=== PATIENT | male | born 1960 | race Caucasian/White ===

== ENCOUNTER 2019-11-09 01:14 | Emergency (ER) | payer OTHER ==
--- NOTE | 2019-11-09 01:27 | ED Physician Documentation ---
PD HPI ABD PAIN - Stated complaint Stated Complaint: STOMACH PX, VOMITING - History obtained from History obtained from: Patient - History of Present Illness Timing - onset: How many hours ago (4) Timing - duration: Hours (4) Timing - details: Abrupt onset, Still present (He had abrupt onset about 15 or 20 minutes after eating a taco salad of significant upper abdominal pain which persisted steadily and became much worse in the past hour. Associated with nausea and vomiting that did not improve the pain. Had felt okay earlier in the day.) Quality: Aching, Sharp, Pain Location: RUQ, Epigastric Radiation: Chest, Upper back Improved by: No: Vomiting Worsened by: Eating, Palpation. No: Moving, Breathing Associated symptoms: Nausea, Vomiting (several times, then dry heaving). No: Fever, Hematemesis, Diarrhea, Constipation, Dizzy, Near syncope / syncope Similar symptoms before: Has not had sx before Recently seen: Not recently seen Review of Systems Constitutional: denies: Fever, Chills, Myalgias Nose: denies: Rhinorrhea / runny nose, Congestion Throat: denies: Sore throat Cardiac: denies: Palpitations, Pedal edema, Calf pain Respiratory: denies: Cough GI: reports: Abdominal Pain, Abdominal Swelling (feels bloated), Nausea, Vomiting. denies: Constipation, Diarrhea, Hematemesis : denies: Dysuria Neurologic: denies: Generalized weakness, Focal weakness, Near syncope, Altered mental status, Headache PD PAST MEDICAL HISTORY - Past Medical History Cardiovascular: None Respiratory: None Neuro: None Endocrine/Autoimmune: None GI: Other (eosiniphilic esophagitis, takes PPI daily for it.) - Present Medications Home Medications: Ambulatory Orders Medication Instructions Recorded Confirmed Ondansetron Odt [Zofran] 4 mg TL Q6H PRN #10 tablet 11/09/19 Oxycodone HCl/Acetaminophen 1 each PO Q6H PRN #10 tablet 11/09/19 [Percocet 5-325 mg Tablet] - Allergies Allergies/Adverse Reactions: Allergies Allergy/AdvReac Type Severity Reaction Status Date / Time No Known Drug Allergies Allergy Verified 11/09/19 01:47 PD ED PE NORMAL - Vitals Vital signs reviewed: Yes - General General: Alert and oriented X 3, Well developed/nourished, Other (appears in considerable pain. ) - HEENT HEENT: Moist mucous membranes - Neck Neck: Supple, no meningeal sign, No adenopathy - Cardiac Cardiac: RRR, No murmur - Respiratory Respiratory: Clear bilaterally - Abdomen Abdomen: Soft, No organomegaly, Other (very tender with guarding in epigastric and RUQ area. Mild percussion tenderness, no rebound. Lower abd not tender. ) - Male Male : Deferred - Rectal Rectal: Deferred - Back Back: No CVA TTP - Derm Derm: Normal color, Warm and dry - Extremities Extremities: No tenderness to palpate, Normal ROM s pain, No calf tenderness / cord - Neuro Neuro: Alert and oriented X 3, No motor deficit, Normal speech Results - Vitals Vitals: Vital Signs - 24 hr 11/09/19 11/09/19 11/09/19 01:25 02:13 03:00 Temperature 35.7 C L Heart Rate 67 53 L 55 L Respiratory 36 H 14 14 Rate Blood Pressure 190/96 H 177/106 H 146/83 H O2 Saturation 100 99 96 11/09/19 03:30 Temperature Heart Rate 62 Respiratory 16 Rate Blood Pressure 156/89 H O2 Saturation 97 Oxygen O2 Source Room air - Labs Labs: Laboratory Tests 11/09/19 11/09/19 11/09/19 01:30 01:30 01:40 WBC 8.6 RBC 5.80 Hgb 17.2 Hct 50.5 MCV 87.1 MCH 29.7 MCHC 34.1 RDW 12.5 Plt Count 305 MPV 8.8 Neut # (Auto) 4.8 Lymph # (Auto) 2.6 [place] # (Auto) 0.8 Eos # (Auto) 0.3 Baso # (Auto) 0.1 Absolute Nucleated RBC 0.00 Nucleated RBC % 0.0 Sodium 142 Potassium 3.4 L Chloride 105 Carbon Dioxide 26 Anion Gap 11.0 BUN 19 Creatinine 1.2 Estimated GFR (MDRD) 62 L Glucose 150 H Calcium 10.3 Total Bilirubin 0.7 AST 19 ALT 26 Alkaline Phosphatase 105 Total Protein 7.8 Albumin 4.5 Globulin 3.3 Albumin/Globulin Ratio 1.4 Lipase 40 Urine Color YELLOW Urine Clarity CLEAR Urine pH 6.5 Ur Specific [place] 1.025 Urine Protein NEGATIVE Urine Glucose (UA) NEGATIVE Urine Ketones NEGATIVE Urine Occult Blood NEGATIVE Urine Nitrite NEGATIVE Urine Bilirubin NEGATIVE Urine Urobilinogen 1 (NORMAL) Ur Leukocyte Esterase NEGATIVE Ur Microscopic Review NOT INDICATED Urine Culture Comments NOT INDICATED - Rads (name of study) abd/pelvic CT Radiology: Prelim report reviewed (Aorta is normal without dissection. There is some pericholecystic fluid around the gallbladder and between it and the liver. No wall thickening or obvious stones. No other acute abnormality.), See rad report PD MEDICAL DECISION MAKING - ED course Complexity details: reviewed results (Labs are good and the CT scan shows just s ome pericholecystic fluid without wall thickening or obvious stones. Presume some sludging or small stone with biliary colic. Labs are normal so no signs of ductal obstruction.), re-evaluated patient (The patient is improved stepwise with doses of medication. He is more comfortable at the time of discharge and repeat abdominal exam is mildly tender without any guarding in the epigastric area), considered differential (Consider gallbladder spasm versus biliary duct blockage versus perforated ulcer or bowel obstruction given the abruptness of the pain and severity.), d/w patient Departure - Departure Disposition: 01 Home, Self Care Clinical Impression: Upper abdominal pain, Biliary colic Condition: Stable Record reviewed to determine appropriate education?: Yes Instructions: ED Abdominal Pain Gallstone Poss Follow-Up: LUIS ALFREDO LAGUERRE MD [Physician No Access] - Brandy Hearn MD [Provider Admit Priv/Credential] - Prescriptions: Oxycodone HCl/Acetaminophen [Percocet 5-325 mg Tablet] 1 each PO Q6H PRN #10 tablet PRN Reason: pain Ondansetron Odt [Zofran] 4 mg TL Q6H PRN #10 tablet PRN Reason: Nausea / Vomiting Comments: Mainly clear liquids and bland food for a day or two, and particularly avoid fatty foods. Resume more regular diet if your stomach is doing well at that point though avoid particularly fatty foods. Your CT scan shows some inflammation/fluid around the gallbladder suggesting gallbladder spasm and irritation as a cause of your pain. No other obvious causes are seen on your blood tests or CT scan. There were not obvious gallstones seen on the scan so you may have had some sludging or a very small stone block the gallbladder outlet, inducing the colic episode you had. This should taper down through the rest of the day today and be improved within 1 to 2 days. You will then need to see if you get further episodes in the future. Follow-up with your primary care or general surgery if you have mild recurrent episodes after meals. Use nausea and pain medicine if needed. Return to the ER if significant episode again or if you are not all the way improved over the next couple of days.
[2019-11-09] MEDS ORDERED: SODIUM CHLORIDE 0.9% 1,000 ML IV STA (01:53)
[2019-11-09] MEDS ORDERED: ONDANSETRON 4 MG/2 ML VIAL IVP STA ×2 (01:53→03:47)
[2019-11-09] MEDS ORDERED: HYDROmorphone 1 MG/ML CARPUJECT IVP STA ×2 (01:53→02:50)
[2019-11-09] MEDS ORDERED: FAMOTIDINE 20 MG/2 ML SYRINGE IVP STA (01:54)
[2019-11-09 01:58] LABS: BASOPHILS # (AUTO) 0.1 10^3/uL (0.0-0.1); BASOPHILS % (AUTO) 0.6 %; EOSINOPHILS # (AUTO) 0.3 10^3/uL (0.0-0.7); EOSINOPHILS % (AUTO) 3.2 %; HGB - HEMOGLOBIN 17.2 g/dL (14.0-18.0); LYMPHOCYTES # (AUTO) 2.6 10^3/uL (1.5-3.5); LYMPHOCYTES % (AUTO) 30.4 %; MEAN CORPUSCULAR HEMOGLOBIN 29.7 pg (27.0-31.0); MEAN CORPUSCULAR HGB CONC 34.1 g/dL (32.0-36.0); MEAN CORPUSCULAR VOLUME 87.1 fL (80.0-94.0); MEAN PLATELET VOLUME 8.8 fL (7.4-11.4); MONOCYTES # (AUTO) 0.8 10^3/uL (0.0-1.0); MONOCYTES % (AUTO) 8.8 %; NEUTROPHILS # (AUTO) 4.8 10^3/uL (1.5-6.6); NEUTROPHILS % (AUTO) 56.1 %; PLT - PLATELET COUNT 305 10^3/uL (130-450); RED CELL DISTRIBUTION WIDTH 12.5 % (12.0-15.0); WHITE BLOOD COUNT 8.6 x10^3/uL (4.8-10.8)
[2019-11-09 01:59] LABS: BILIRUBIN,URINE NEGATIVE (NEGATIVE); GLUCOSE, URINE (UA) NEGATIVE (NEGATIVE); KETONES,URINE (UA) NEGATIVE (NEGATIVE); LEUKOCYTE ESTERASE, URINE NEGATIVE (NEGATIVE); NITRITE,URINE NEGATIVE (NEGATIVE); OCCULT BLOOD,URINE NEGATIVE (NEGATIVE); PH,URINE 6.5 PH (5.0-7.5); PROTEIN,URINE NEGATIVE (NEGATIVE); UROBILINOGEN,URINE 1 (NORMAL) E.U./dL (NORMAL)
[2019-11-09 02:00] LABS: CLARITY,URINE CLEAR (CLEAR)
[2019-11-09 02:08] LABS: ALBUMIN 4.5 g/dL (3.2-5.5); ALBUMIN/GLOBULIN RATIO 1.4 (1.0-2.2); BILIRUBIN,TOTAL 0.7 mg/dL (0.2-1.0); CALCIUM 10.3 mg/dL (8.5-10.3); CREATININE 1.2 mg/dL (0.6-1.2); TOTAL PROTEIN 7.8 g/dL (6.7-8.2)
[2019-11-09] MEDS ORDERED: IOVERSOL 320 100 ML VIAL IVP ONE ×2 (02:13→02:47)
[2019-11-09] MEDS ORDERED: KETOROLAC 15 MG/ML VIAL IVP STA (02:50)
[2019-11-09 03:47] VITALS: BP 156/89
[2019-11-09] MEDS ORDERED: ONDANSETRON ODT 4 MG Prepack 2 TL PRN (03:50)
[2019-11-09] MEDS ORDERED: oxyCODONE/ACET 5/325 Prepack 4 PO STA (03:50)
--- NOTE | 2019-11-09 09:16 | CT Report ---
PROCEDURE: Abdomen/Pelvis W INDICATIONS: Abdominal pain, acute, nonlocalized CONTRAST: IV CONTRAST: Optiray 320 ml: 100 PO CONTRAST: *NO PO CONTRAST TECHNIQUE: After the administration of nonionic contrast, 5 mm thick sections acquired from the diaphragms to th e symphysis. 5 mm thick coronal and sagittal reformats were acquired. For radiation dose reduction, the following was used: automated exposure control, adjustment of mA and/or kV according to patient size. COMPARISON: None. FINDINGS: Image quality: Excellent. ABDOMEN: Lung bases: Lung bases are clear. Heart size is normal. Solid organs: Liver and spleen are normal in size and enhancement. Gallbladder contains no calcifie d stones. No gallbladder wall thickening is present. Biliary system is non dilated. Pancreas enhanc es normally. No adrenal nodules. Kidneys demonstrate normal size and enhancement, without hydroneph rosis. Peritoneum and bowel: Bowel loops demonstrate normal wall thickness and caliber. No free fluid or a ir. Nodes and vessels: No retroperitoneal or mesenteric adenopathy by size criteria. Aorta and inferior vena cava are normal in size. Miscellaneous: No ventral hernias. PELVIS: Genitourinary: Bladder wall thickness is normal. Relatively large hydrocele noted involving the sma ll portion of the scrotum included on this study. Miscellaneous: No inguinal hernias or adenopathy. Note is made of a small calculus at the rectus ab ove the anterior border of the bladder. No inflammation or mass associated. No abnormal focal fluid c ollection in this area. Bones: No suspicious bony lesions. No vertebral body compression fractures. IMPRESSION: A definite source of generalized abdominal pain with nausea and vomiting is not found. N o calcified gallstones within the gallbladder lumen. Please note that some gallstones are cholesterol rich to the degree that they cannot be visualized accurately by CT scanning. Ultrasound scanning, ho wever, allows clear visualization of such structures. No sign of urinary tract inflammation or calculus. Incidental note is made of a small 3 mm calcificat ion within the urachus above the anterior border of the bladder, without associated fluid collection or inflammation, or mass. Presumably chronic relatively large hydrocele at a portion of the upper scrotum included on the field -of-view of this study. Please correlate clinically for chronicity. Reviewed by: Rodrigue Yanez MD on 11/09/2019 9:14 AM PDT Approved by: Rodrigue Yanez MD on 11/09/2019 9:14 AM PDT Station ID: [id number]
== END 2019-11-09 04:17 | disposition home or self-care (01) ==
LOC: ED 01:14
DX: K80.50 Calculus of bile duct without cholangitis or cholecystitis without obstruction (principal); R10.11 Right upper quadrant pain; R11.2 Nausea with vomiting, unspecified; R07.9 Chest pain, unspecified
CPT/HCPCS: 36415; 74177; 80053; 81003; 83690; 85025; 93005; 96361; 96374; 96375; 96376; 99284; 99285; J1170; Q9967; 81001; 87086

== ENCOUNTER 2019-11-10 07:24 | Observation (INO) | payer OTHER ==
[2019-11-10] MEDS ORDERED: SODIUM CHLORIDE 0.9% 1,000 ML IV STA (07:38)
[2019-11-10] MEDS ORDERED: ONDANSETRON 4 MG/2 ML VIAL IVP STA (07:38)
[2019-11-10] MEDS ORDERED: HYDROmorphone 1 MG/ML CARPUJECT IVP STA ×2 (07:38→09:51)
--- NOTE | 2019-11-10 07:42 | ED Physician Documentation ---
PD HPI ABD PAIN - Stated complaint Stated Complaint: ABD PX, DIFFICULTY BREATHING - History obtained from History obtained from: Patient - Additional information Additional information: 59-year-old gentleman was seen early yesterday morning epigastric and right upper quadrant pain. Had normal labs, CT with pericholecystic fluid. I guess he felt better on IV pain medication but pain has been intolerable at home with Advil and oxycodone. Also developed "a fever" yesterday but it was only 99 point something. Last bowel movement was about 40 hours ago. No history of abdominal surgeries. Review of Systems Ten Systems: 10 systems reviewed and negative Constitutional: reports: Fever Respiratory: denies: Dyspnea ("but hurts to breathe") GI: reports: Abdominal Pain, Nausea. denies: Vomiting PD PAST MEDICAL HISTORY - Past Medical History Cardiovascular: None Respiratory: None Neuro: None Endocrine/Autoimmune: None GI: Other (eosiniphilic esophagitis, takes PPI daily for it.) - Present Medications Home Medications: Ambulatory Orders Medication Instructions Recorded Confirmed Ondansetron Odt [Zofran] 4 mg TL Q6H PRN #10 tablet 11/09/19 Oxycodone HCl/Acetaminophen 1 each PO Q6H PRN #10 tablet 11/09/19 [Percocet 5-325 mg Tablet] - Allergies Allergies/Adverse Reactions: Allergies Allergy/AdvReac Type Severity Reaction Status Date / Time No Known Drug Allergies Allergy Verified 11/09/19 01:47 - Family History Family history: reports: Non contributory PD ED PE NORMAL - Vitals Vital signs reviewed: Yes - General General: Alert and oriented X 3, Other (appears uncomfortable) - HEENT HEENT: PERRL, EOMI - Neck Neck: Supple, no meningeal sign, No bony TTP - Cardiac Cardiac: RRR, No murmur - Respiratory Respiratory: No respiratory distress, Clear bilaterally - Abdomen Abdomen: Other (Quite TTP RUQ with + murphys) - Back Back: No CVA TTP, No spinal TTP - Derm Derm: Normal color, Warm and dry - Extremities Extremities: No edema, No calf tenderness / cord - Neuro Neuro: Alert and oriented X 3, Normal speech Results - Vitals Vitals: Vital Signs - 24 hr 11/10/19 11/10/19 11/10/19 07:41 07:58 09:45 Temperature 37 C 37 C Heart Rate 85 85 73 Respiratory 18 18 Rate Blood Pressure 181/98 H 181/98 H 183/103 H O2 Saturation 98 98 94 Oxygen O2 Source Room air - Labs Labs: Laboratory Tests 11/10/19 11/10/19 07:45 07:45 WBC 16.0 H RBC 5.58 Hgb 16.4 Hct 49.8 MCV 89.2 MCH 29.4 MCHC 32.9 RDW 12.8 Plt Count 238 MPV 8.5 Neut # (Auto) 13.4 H Lymph # (Auto) 1.1 L [place] # (Auto) 1.4 H Eos # (Auto) 0.0 Baso # (Auto) 0.1 Absolute Nucleated RBC 0.00 Nucleated RBC % 0.0 Sodium 136 Potassium 3.4 L Chloride 100 L Carbon Dioxide 28 Anion Gap 8.0 BUN 13 Creatinine 1.1 Estimated GFR (MDRD) 68 L Glucose 146 H Calcium 9.0 Total Bilirubin 1.7 H AST 17 ALT 23 Alkaline Phosphatase 93 Total Protein 7.6 Albumin 4.2 Globulin 3.4 Albumin/Globulin Ratio 1.2 Lipase 24 PD MEDICAL DECISION MAKING - ED course ED course: 59-year-old gentleman with history and physical consistent with brewing cholecystitis. I discussed the case multiple times with the on-call surgeon, Dr. Whiteside. The diagnostics are not completely convincing, ultrasound showing some polyps but no overt signs of cholecystitis. Since yesterday though he has developed a leukocytosis and an elevated bilirubin. Dr. Whiteside plans to place him in observation for pain control and discuss options. Departure - Departure Disposition: ED Place in Observation Clinical Impression: Acute abdomen Condition: Stable Discharge Date/Time: 11/10/19 11:05
[2019-11-10 08:01] LABS: BASOPHILS # (AUTO) 0.1 10^3/uL (0.0-0.1); BASOPHILS % (AUTO) 0.3 %; EOSINOPHILS % (AUTO) 0.1 %; HGB - HEMOGLOBIN 16.4 g/dL (14.0-18.0); LYMPHOCYTES # (AUTO) 1.1 10^3/uL (1.5-3.5); LYMPHOCYTES % (AUTO) 6.6 %; MEAN CORPUSCULAR HEMOGLOBIN 29.4 pg (27.0-31.0); MEAN CORPUSCULAR HGB CONC 32.9 g/dL (32.0-36.0); MEAN CORPUSCULAR VOLUME 89.2 fL (80.0-94.0); MEAN PLATELET VOLUME 8.5 fL (7.4-11.4); MONOCYTES # (AUTO) 1.4 10^3/uL (0.0-1.0); MONOCYTES % (AUTO) 8.4 %; NEUTROPHILS # (AUTO) 13.4 10^3/uL (1.5-6.6); NEUTROPHILS % (AUTO) 83.7 %; PLT - PLATELET COUNT 238 10^3/uL (130-450); RED BLOOD COUNT 5.58 10^6/uL (4.70-6.10); RED CELL DISTRIBUTION WIDTH 12.8 % (12.0-15.0)
[2019-11-10 08:20] LABS: ALBUMIN 4.2 g/dL (3.2-5.5); ALBUMIN/GLOBULIN RATIO 1.2 (1.0-2.2); BILIRUBIN,TOTAL 1.7 mg/dL (0.2-1.0); CREATININE 1.1 mg/dL (0.6-1.2); TOTAL PROTEIN 7.6 g/dL (6.7-8.2)
--- NOTE | 2019-11-10 09:42 | Ultrasound Report ---
PROCEDURE: Abdomen Limited INDICATIONS: RUQ pain TECHNIQUE: Real-time scanning was performed of the abdominal and retroperitoneal organs, with image documentatio n. COMPARISON: CT abdomen/pelvis dated 11/09/2019. FINDINGS: Liver: Liver is normal in size with mildly coarsened echotexture. Gallbladder: There is a small amount of layering sludge in the gallbladder without gallbladder wall t hickening or pericholecystic fluid. Subcentimeter nodules measuring up to 9 mm anteriorly and 6 mm po steriorly may represent adherent sludge or small polyps. Biliary ducts: Intrahepatic bile ducts are non-dilated. Extrahepatic bile duct caliber measures 4 m m. Normal is 6-7 mm or less in diameter, or 10 mm or less post-cholecystectomy. Pancreas: The pancreas is not well-visualized due to overlying bowel gas. Kidneys: The right kidney is normal in size measuring up to 12.8 cm. A 1.2 cm cyst is seen in the in terpolar region of the right kidney. No hydronephrosis or nephrolithiasis. No solid masses. IVC: Intrahepatic inferior vena cava is patent. Miscellaneous: No free right upper quadrant fluid. IMPRESSION: 1. Gallbladder sludge without signs of acute cholecystitis. 2. Filling defects in the gallbladder measuring 9 mm and 6 mm respectively may represent small polyp s or adherent sludge. Recommend follow-up ultrasound in one year to demonstrate stability. Reviewed by: Edouard Leon MD on 11/10/2019 9:40 AM PDT Approved by: Edouard Leon MD on 11/10/2019 9:40 AM PDT Station ID: [id number]
[2019-11-10] MEDS ORDERED: ONDANSETRON ODT 4 MG TABLET TL PRN ×2 (10:15→17:41)
[2019-11-10] MEDS ORDERED: ONDANSETRON 4 MG/2 ML VIAL IVP PRN ×3 (10:15→17:41)
[2019-11-10] MEDS ORDERED: SODIUM CHLORIDE FLUSH 0.9% 10 ML SYRINGE IVP PRN ×2 (10:15→17:41)
[2019-11-10] MEDS: LACTATED RINGERS 1,000 ML IV SCH ×2 (11:33→20:59)
[2019-11-10] MEDS: HYDROmorphone 0.5 MG/0.5 ML SYRINGE IVP PRN ×4 (11:49→20:58)
--- NOTE | 2019-11-10 12:51 | PHARMACY PROGRESS NOTE ---
- Best Possible Medication History Admit Date and Time: 11/10/19 1203 Processed by: Pharmacy Medication History completed: Yes Patient Interview: Completed Secondary Source(s): Pharmacy records, Insurance records (PATIENT INTERVIEWED BY DRILLING AND PRODUCTION SUPERINTENDENT. PATIENT AND SPOUSE ABLE TO CONFIRM HOME MEDICATIONS ) As the person ultimately responsible for medication therapy, providers are able to order a medication from an existing home medication list in [facility] via the "Reconcile Routine" prior to Confirmation of that medication by customer support specialist. Such practice is discouraged except when the physician, in their clinical judgment, deems that a medical need exists for a medication without regard to previous use.
[2019-11-10] MEDS: AMPICILLIN/SULBACTAM 3 GM in SODIUM CHLORIDE 0.9% MINIBAG 100 ML IV SCH ×2 (13:02→19:00)
--- NOTE | 2019-11-10 13:12 | ANESTHESIA ---
Pre-Anesthesia VS, & Labs - Diagnosis Cholecystitis - Procedure laparoscopic cholecystectomy Vital Signs: Temp Pulse Resp BP Pulse Ox 37.7 C H 87 16 175/85 H 98 11/10/19 11:18 11/10/19 11:18 11/10/19 11:18 11/10/19 11:18 11/10/19 11:18 Height 5 ft 9 in Weight (kg) 103 kg Body Mass Index 33.5 - NPO >8 hours - Lab Results Current Lab Results: Laboratory Tests 11/10/19 07:45: Sodium 136, Potassium 3.4 L, Chloride 100 L, Carbon Dioxide 28, Anion Gap 8.0, BUN 13, Creatinine 1.1, Estimated GFR (MDRD) 68 L, Glucose 146 H, Calcium 9.0, Total Bilirubin 1.7 H, AST 17, ALT 23, Alkaline Phosphatase 93, Total Protein 7.6, Albumin 4.2, Globulin 3.4, Albumin/Globulin Ratio 1.2, Lipase 24 11/10/19 07:45: WBC 16.0 H, RBC 5.58, Hgb 16.4, Hct 49.8, MCV 89.2, MCH 29.4, MCHC 32.9, RDW 12.8, Plt Count 238, MPV 8.5, Neut # (Auto) 13.4 H, Lymph # (Auto) 1.1 L, [place] # (Auto) 1.4 H, Eos # (Auto) 0.0, Baso # (Auto) 0.1, Absolute Nucleated RBC 0.00, Nucleated RBC % 0.0 Lab results reviewed: Yes Fish Bones: 11/10/19 07:45 11/10/19 07:45 Home Medications and Allergies Home Medications: Ambulatory Orders Multivitamin [Multivitamins] 1 cap PO DAILY 11/10/19 Omeprazole 20 mg PO DAILY 11/10/19 Triamcinolone Acetonide [Nasacort] 1 spray KATHLEEN DAILY PRN 11/10/19 Active Medications Acetaminophen (Tylenol) 650 mg PO Q4HR PRN PRN Reason: Pain 1 to 4 Famotidine (Pepcid) 20 mg PO BID JORDAN Hydromorphone HCl (Dilaudid Inj Syringe) 0.5 mg IVP Q2H PRN PRN Reason: Pain 8 to 10 Last Admin: 11/10/19 11:49 Dose: 0.5 mg Documented by: Lactated Ringer's (Lr) 1,000 mls @ 125 mls/hr IV .Q8H [facility] Last Admin: 11/10/19 11:33 Dose: 125 mls/hr Documented by: Ampicillin Sodium/Sulbactam (Sodium 3 gm/ Sodium Chloride) 100 mls @ 200 mls/hr IV Q6HR [facility] Last Admin: 11/10/19 13:02 Dose: 200 mls/hr Documented by: Ondansetron HCl (Zofran Odt) 4 mg TL Q6HR PRN PRN Reason: Nausea / Vomiting Ondansetron HCl (Zofran Inj) 4 mg IVP Q6HR PRN PRN Reason: Nausea / Vomiting Sodium Chloride (Normal Saline Flush 0.9%) 10 ml IVP PRN PRN PRN Reason: NEEDED PER PROVIDER ORDERS Sodium Chloride (Normal Saline Flush 0.9%) 10 ml IVP 0100,0900,1700 [facility] Multivitamin [Multivitamins] 1 cap PO DAILY 11/10/19 Omeprazole 20 mg PO DAILY 11/10/19 Triamcinolone Acetonide [Nasacort] 1 spray KATHLEEN DAILY PRN 11/10/19 Allergies/Adverse Reactions: Allergies Allergy/AdvReac Type Severity Reaction Status Date / Time No Known Drug Allergies Allergy Verified 11/09/19 01:47 Anes History & Medical History - Anesthetic History Anesthesia Complications: reports: No previous complications Family history of Anesthesia Complications: Denies Family history of Malignant Hyperthermia: Denies - Medical History Cardiovascular: reports: None Pulmonary: reports: None Gastrointestinal: reports: Other (eosiniphilic esophagitis, takes PPI daily for it.) Neuro: reports: None Endocrine/Autoimmune: reports: None Smoking Status: Never smoker - Surgical History Eyes Ears Nose Throat (EENT): Other Results - EKG Results EKG Comparison: Reviewed EKG, Normal EKG Exam General: Alert, Oriented x3, Cooperative, No acute distress Mouth Openin Fingerbreadth Neck Mobility: Normal Mallampati classification: II Respiratory: Lungs clear, Normal breath sounds, No respiratory distress Cardiovascular: Regular rate, Normal S1, Normal S2, No murmurs Plan Anesthesia Type: General Consent for Procedure(s) Verified and Reviewed: Yes Code Status: Attempt Resuscitation ASA classification: 2-Mild systemic disease Is this case an emergency?: No
--- NOTE | 2019-11-10 13:12 | HISTORY & PHYSICAL EXAMINATION ---
Chief Complaint - Chief Complaint Chief Complaint: right upper quadrant pain x 2 days Abdominal Pain HPI - Admitted From Admitted from: ED - History Obtained From History obtained from: Patient, Other (ED MD) Exam limitations: No limitations - History of Present Illness Severity at the worst: Severe Pain Quality: Sharp Context-Pain started w/: Rest Timing: Gradual onset Duration: Days: (2) Improved with: Nothing Worsened by: Movement, Other (taking a deep breath) Associated symptoms: Nausea, Other (indigestion) PMH/PSH - Past Medical History Cardiovascular: positive: None Respiratory: positive: None Neuro: positive: None Endocrine/Autoimmune: positive: None GI: positive: Other (eosiniphilic esophagitis, takes PPI daily for it.) MRSA Hx?: No Social & Family Hx - Social History Does the pt smoke?: No Smoking Status: Never smoker Meds/Allgy - Home Medications Home Medications: Ambulatory Orders Medication Instructions Recorded Confirmed Multivitamin [Multivitamins] 1 cap PO DAILY 11/10/19 11/10/19 Omeprazole 20 mg PO DAILY 11/10/19 11/10/19 Triamcinolone Acetonide [Nasacort] 1 spray KATHLEEN DAILY PRN 11/10/19 11/10/19 - Allergies Allergies/Adverse Reactions: Allergies Allergy/AdvReac Type Severity Reaction Status Date / Time No Known Drug Allergies Allergy Verified 11/09/19 01:47 Review of Systems - Other Findings Other Findings: 10 pt ros as above and below otherwise unremarkable. Denies heart and lung problems He has mild similar symptoms in the past Exam - Vital Signs Vital Signs: Vital Signs x48h Temp Pulse Pulse Resp BP BP Pulse Ox 11/10/19 11:18 37.7 C H 87 16 175/85 H 98 11/10/19 11:01 80 18 165/82 H 91 L 11/10/19 09:45 73 183/103 H 94 11/10/19 07:58 37 C 85 18 181/98 H 98 11/10/19 07:41 37 C 85 18 181/98 H 98 - Physical Exam General Appearance: positive: No acute distress, Alert Eyes Bilateral: positive: Normal inspection, PERRL, EOMI, No scleral icterus Neck: positive: No JVD Respiratory: positive: No respiratory distress Cardiovascular: positive: Regular rate & rhythm Abdomen: positive: Other (right upper quadrant tenderness) Results - Lab Results Fish Bones: 11/10/19 07:45 11/10/19 07:45 Other Lab Results: Lab Results x24hrs 11/10/19 11/10/19 Range/Units 07:45 07:45 WBC 16.0 H (4.8-10.8) x10^3/uL RBC 5.58 (4.70-6.10) 10^6/uL Hgb 16.4 (14.0-18.0) g/dL Hct 49.8 (42.0-52.0) % MCV 89.2 (80.0-94.0) fL MCH 29.4 (27.0-31.0) pg MCHC 32.9 (32.0-36.0) g/dL RDW 12.8 (12.0-15.0) % Plt Count 238 (130-450) 10^3/uL MPV 8.5 (7.4-11.4) fL Neut # (Auto) 13.4 H (1.5-6.6) 10^3/uL Lymph # (Auto) 1.1 L (1.5-3.5) 10^3/uL [place] # (Auto) 1.4 H (0.0-1.0) 10^3/uL Eos # (Auto) 0.0 (0.0-0.7) 10^3/uL Baso # (Auto) 0.1 (0.0-0.1) 10^3/uL Absolute Nucleated RBC 0.00 x10^3/uL Nucleated RBC % 0.0 /100WBC Sodium 136 (135-145) mmol/L Potassium 3.4 L (3.5-5.0) mmol/L Chloride 100 L (101-111) mmol/L Carbon Dioxide 28 (21-32) mmol/L Anion Gap 8.0 (6-13) BUN 13 (6-20) mg/dL Creatinine 1.1 (0.6-1.2) mg/dL Estimated GFR (MDRD) 68 L (>89) Glucose 146 H (70-100) mg/dL Calcium 9.0 (8.5-10.3) mg/dL Total Bilirubin 1.7 H (0.2-1.0) mg/dL AST 17 (10-42) IU/L ALT 23 (10-60) IU/L Alkaline Phosphatase 93 (42-121) IU/L Total Protein 7.6 (6.7-8.2) g/dL Albumin 4.2 (3.2-5.5) g/dL Globulin 3.4 (2.1-4.2) g/dL Albumin/Globulin Ratio 1.2 (1.0-2.2) Lipase 24 (22-51) U/L - Diagnostic Imaging Results Diagnostic Imaging Results: positive: Final report reviewed, Read independently, Other (9 mm gallbladder polyp) Impression/Plan - Problem List Problem List: cholecystitis clinically. 9 mm gallbladder polyp present parq held and consent obtained for lap gracy IV abxs pain management
[2019-11-10] MEDS ORDERED: METOCLOPRAMIDE 10 MG/2 ML VIAL IVP PRN (13:37)
[2019-11-10] MEDS ORDERED: fentaNYL 100 MCG/2 ML VIAL IVP PRN (13:37)
[2019-11-10] MEDS ORDERED: ATROPINE ABBOJECT 1 MG/10 ML SYRINGE IVP PRN (13:37)
[2019-11-10] MEDS ORDERED: NALOXONE 0.4 MG/ML VIAL IVP PRN (13:37)
[2019-11-10] MEDS ORDERED: HYDROmorphone 0.5 MG/0.5 ML SYRINGE IVP PRN (13:37)
[2019-11-10] MEDS ORDERED: ePHEDrine 50 MG/ML VIAL IVP PRN (13:37)
[2019-11-10] MEDS ORDERED: MORPHINE 2 MG/ML CARPUJECT IVP PRN (13:37)
[2019-11-10] MEDS ORDERED: BUPIVACAINE 0.25% PF 30 ML VIAL ONE (13:53)
[2019-11-10] MEDS ORDERED: LACTATED RINGERS 1,000 ML IV SCH ×2 (14:00→17:48)
[2019-11-10] MEDS: SODIUM CHLORIDE FLUSH 0.9% 10 ML SYRINGE IVP SCH (14:23)
[2019-11-10] MEDS ORDERED: BUPIVACAINE 0.25% PF 30 ML VIAL SUBQ ONE ×2 (16:22→17:12)
[2019-11-10] MEDS ORDERED: PROCHLORPERAZINE 10 MG/2 ML VIAL IVP PRN (17:41)
[2019-11-10] MEDS ORDERED: ACETAMINOPHEN 325 MG TABLET PO PRN (17:41)
[2019-11-10] MEDS ORDERED: LACTATED RINGERS 1,000 ML IV ONE (17:46)
[2019-11-10] MEDS ORDERED: AMPICILLIN/SULBACTAM 3 GM in SODIUM CHLORIDE 0.9% MINIBAG 100 ML IV SCH (18:00)
--- NOTE | 2019-11-10 18:28 | ANESTHESIA POST OP EVALUATION ---
Anesthesia Post Eval - Post Anesthesia Eval Vitals: Last Vital Signs Temp 38 C H 11/10/19 18:05 Pulse 74 11/10/19 18:20 Resp 15 11/10/19 18:20 BP 141/79 H 11/10/19 18:20 Pulse Ox 96 11/10/19 18:20 CV Function Including HR & BP: positive: Stable Pain Control: positive: Satisfactory Nausea & Vomiting: positive: Negative Mental Status: positive: Baseline Respiratory Status: Airway Patent Hydration Status: Satisfactory Anesthesia Complications: positive: None
[2019-11-10] MEDS: oxyCODONE 5 MG TABLET PO PRN (19:48)
[2019-11-10] MEDS: FAMOTIDINE 20 MG TABLET PO SCH (20:59)
[2019-11-11] MEDS: HYDROmorphone 0.5 MG/0.5 ML SYRINGE IVP PRN ×4 (01:10→11:14)
[2019-11-11] MEDS: SODIUM CHLORIDE FLUSH 0.9% 10 ML SYRINGE IVP SCH ×4 (01:10→11:14)
[2019-11-11] MEDS: AMPICILLIN/SULBACTAM 3 GM in SODIUM CHLORIDE 0.9% MINIBAG 100 ML IV SCH ×2 (01:10→06:19)
[2019-11-11] MEDS: ACETAMINOPHEN 325 MG TABLET PO PRN ×2 (01:56→06:28)
[2019-11-11] MEDS ORDERED: PANTOPRAZOLE 40 MG TABLET PO SCH (07:00)
[2019-11-11 07:59] VITALS: BP 120/62
[2019-11-11] MEDS: LACTATED RINGERS 1,000 ML IV SCH ×2 (08:36→11:14)
[2019-11-11] MEDS: FAMOTIDINE 20 MG TABLET PO SCH (08:36)
[2019-11-11] MEDS: oxyCODONE 5 MG TABLET PO PRN (08:37)
--- NOTE | 2019-11-11 09:35 | DISCHARGE SUMMARY ---
Discharge Summary Admit Date: 11/10/19 Discharge Date: 11/11/19 Code Status: Attempt Resuscitation Condition at Discharge: Good Discharge Disposition: 01 Home, Self Care - DIAGNOSES Admission Diagnoses: cholecystitis Discharge Diagnoses with Status of Each Condition: cholecystitis. lap gracy and antibiotics. Home 11/11/2019 improved - HPI History of Present Illness: abdominal pain x 2 days. severe and with fever - ALLERGIES Allergies/Adverse Reactions: Allergies Allergy/AdvReac Type Severity Reaction Status Date / Time No Known Drug Allergies Allergy Verified 11/09/19 01:47 - MEDICATIONS Home Medications: Ambulatory Orders Medication Instructions Recorded Confirmed Multivitamin [Multivitamins] 1 cap PO DAILY 11/10/19 11/10/19 Omeprazole 20 mg PO DAILY 11/10/19 11/10/19 Triamcinolone Acetonide [Nasacort] 1 spray KATHLEEN DAILY PRN 11/10/19 11/10/19 Ondansetron Odt [Zofran Odt] 4 mg PO Q6H PRN #15 tablet 11/11/19 oxyCODONE/ACET 5/325 [Percocet 5 1 each PO Q4-6H PRN #20 tablet 11/11/19 mg/325 mg] - PHYSICAL EXAM AT DISCHARGE General Appearance: positive: No acute distress, Alert Eyes Bilateral: positive: Normal inspection ENT: positive: No signs of dehydration Neck: positive: No JVD Respiratory: positive: No respiratory distress Abdomen: positive: Non-tender, No distention, Other (bhavna thin serosanguinous) Neurologic/Psychiatric: positive: Oriented x3 - LABS Result Diagrams: 11/10/19 07:45 11/10/19 07:45
--- NOTE | 2019-11-11 09:38 | DISCHARGE SUMMARY ---
Discharge Summary Condition at Discharge: Good Discharge Disposition: Home, Self Care - DIAGNOSES Admission Diagnoses: cholecystitis - ALLERGIES Allergies/Adverse Reactions: Allergies Allergy/AdvReac Type Severity Reaction Status Date / Time No Known Drug Allergies Allergy Verified 11/09/19 01:47 - MEDICATIONS Home Medications: Ambulatory Orders Medication Instructions Recorded Confirmed Multivitamin [Multivitamins] 1 cap PO DAILY 11/10/19 11/10/19 Omeprazole 20 mg PO DAILY 11/10/19 11/10/19 Triamcinolone Acetonide [Nasacort] 1 spray KATHLEEN DAILY PRN 11/10/19 11/10/19 Ondansetron Odt [Zofran Odt] 4 mg PO Q6H PRN #15 tablet 11/11/19 oxyCODONE/ACET 5/325 [Percocet 5 1 each PO Q4-6H PRN #20 tablet 11/11/19 mg/325 mg] - LABS Result Diagrams: 11/10/19 07:45 11/10/19 07:45 - QUALITY (Female Hip Fx Only) Was patient sent home on osteoporosis medication?: No - FOLLOW UP Follow Up: any surgical care [phone] fridaynovember 15 please call to make an appointment
[2019-11-11] MEDS ORDERED: NEOSTIGMINE 1 MG/1 ML 10 ML MDV IVP ONE (11:29)
[2019-11-11] MEDS ORDERED: DEXAMETHASONE 4 MG/ML VIAL IVP ONE (11:29)
[2019-11-11] MEDS ORDERED: LIDOCAINE-MPF 2% 5 ML VIAL IM ONE (11:29)
[2019-11-11] MEDS ORDERED: ONDANSETRON 4 MG/2 ML VIAL IVP ONE (11:29)
[2019-11-11] MEDS ORDERED: HYDROmorphone 1 MG/ML CARPUJECT IVP ONE (11:29)
[2019-11-11] MEDS ORDERED: ACETAMINOPHEN 1,000 MG/100 ML 100 ML IV ONE (11:29)
[2019-11-11] MEDS ORDERED: PROPOFOL 200 MG/20 ML VIAL IVP ONE (11:29)
[2019-11-11] MEDS ORDERED: GLYCOPYRROLATE 1 MG/5 ML VIAL IVP ONE (11:29)
[2019-11-11] MEDS ORDERED: fentaNYL 100 MCG/2 ML VIAL IVP ONE (11:29)
[2019-11-11] MEDS ORDERED: ROCURONIUM 50 MG/5 ML VIAL IVP ONE (11:29)
--- NOTE | 2019-11-11 15:48 | OPERATIVE REPORT ---
DATE OF SERVICE: 11/10/2019 Physician: Umberto Whiteside MD PREOPERATIVE DIAGNOSIS: Cholecystitis. POSTOPERATIVE DIAGNOSIS: Cholecystitis. PROCEDURE PERFORMED: Laparoscopic cholecystectomy. SURGEON: Umberto Whiteside MD TURPENTINE FARMER: None. COMPLICATIONS: None. ESTIMATED BLOOD LOSS: Less than 25 mL. DRAINS: A 10 flat SOLOMON. SPECIMENS: Gallbladder. FINDINGS 1. A near gangrenous gallbladder walled off with omentum. A green fluid was present in the right up per quadrant at the start of the procedure. 2. Healthy appearing liver. 3. Significant inflammatory change along the portal triad as well. INDICATIONS FOR PROCEDURE: The patient is a previously well 59-year-old gentleman who has had 2 days of quite significant epigastric and right upper quadrant pain. His pain was very consistent with ch olecystitis. He had CT scan, followed by ultrasound, which were quite unremarkable. LFTs were arya l. Given the significant symptoms, further workup with HIDA scan or surgery was offered and recommen ded. He desired proceeding with surgery. Risks discussed, and alternatives discussed. All question s answered and consent obtained. DESCRIPTION OF PROCEDURE: The patient was properly identified and brought to the operating room and placed in supine position. He received antibiotics shortly after admission to the hospital for eleva sofia white count and a fever. Sequential compression devices were placed. General endotracheal anest hesia was induced. He was prepped and draped in a sterile fashion. Local anesthetic was given to in cision areas. Patient had a moderate diastasis and mild weakness at the umbilicus. A 3 cm incision was made approximately 4 cm cephalad and 4 cm right lateral to the umbilicus. Dissection proceeded d own to the fascia. The fascia was incised, lifted upwards and abdomen entered with the Veress needle . CO2 was insufflated to a pressure of 15. An 11 mm trocar with a 30-degree scope was placed. Ther e was no evidence of injury from Veress needle or trocar placement. Under direct vision, two 5 mm tr ocars were placed in the right upper quadrant and a 10 mm trocar was placed in the epigastrium. His omentum was adherent to the liver. It was sharply excised away from the liver. The omentum was then peeled off from the underside of the liver, exposing a near gangrenous and very tense gallbladder. The gallbladder was aspirated, allowing for retraction. The omentum was further peeled down from the gallbladder, exposing the Annamarie's pouch area. The Annamarie's pouch was then retracted right late ral and caudad. He had very significant inflammatory change involving the common hepatic duct area. The cystic duct and cystic artery were both clearly identified. The gallbladder was further mobiliz ed off from the liver, creating a bare cystic plate area or window. The cystic duct and cystic arter y were then both clipped at the gallbladder x2 slightly proximal and sharply divided. The gallbladde r was further mobilized off from the liver, placed in an EndoCatch bag and brought out through the ep igastric trocar site. The abdomen was thoroughly irrigated. There were no apparent complications. A number 10 flat Christophe-Jamison drain was placed in the right upper quadrant liver bed area and paty t out through the lateral right upper quadrant trocar site. The drain was secured with a 3-0 nylon. Trocars were removed under direct vision and CO2 evacuated. Fascia at the larger trocar sites was c losed with running 0 Vicryl suture. Subcutaneous tissue was irrigated and skin closed with buried in terrupted 4-0 Monocryl. Dressings were applied. He tolerated the procedure very well. TD: 11/11/2019 13:13
== END 2019-11-11 11:30 | disposition home or self-care (01) ==
LOC: ED 07:24 → UNDOADMOB 10:15 → ICU 10:15 → INTOOBSV 10:15 → ICU 12:03 → MS2 17:10
PROVIDERS: ADMIT Surgery; ATTEND Surgery
PROC: 0FT44ZZ Resection of Gallbladder, Percutaneous Endoscopic Approach (ICD-10-PCS; principal; 2019-11-10 16:00)
DX: K81.0 Acute cholecystitis (principal); K20.0 Eosinophilic esophagitis
CPT/HCPCS: 36415; 47562; 76705; 80053; 83690; 85025; 96361; 96374; 96375; 96376; 99284; 99285; A9270; G0378; J0131; J1170; J7120

== ENCOUNTER 2022-10-07 08:26 | Emergency (ER) | payer OTHER ==
[2022-10-07 08:51] LABS: BASOPHILS % (AUTO) 0.3 %; EOSINOPHILS # (AUTO) 0.1 10^3/uL (0.0-0.7); EOSINOPHILS % (AUTO) 2.1 %; HCT - HEMATOCRIT 50.3 % (42.0-52.0); HGB - HEMOGLOBIN 16.8 g/dL (14.0-18.0); LYMPHOCYTES # (AUTO) 1.3 10^3/uL (1.5-3.5); LYMPHOCYTES % (AUTO) 18.9 %; MEAN CORPUSCULAR HEMOGLOBIN 29.5 pg (27.0-31.0); MEAN CORPUSCULAR HGB CONC 33.4 g/dL (32.0-36.0); MEAN CORPUSCULAR VOLUME 88.2 fL (80.0-94.0); MEAN PLATELET VOLUME 9.1 fL (7.4-11.4); NEUTROPHILS # (AUTO) 4.3 10^3/uL (1.5-6.6); PLT - PLATELET COUNT 157 10^3/uL (130-450); RED CELL DISTRIBUTION WIDTH 12.9 % (12.0-15.0); WHITE BLOOD COUNT 6.8 x10^3/uL (4.8-10.8)
[2022-10-07] MEDS ORDERED: GLUCAGON 1 MG/ML VIAL IVP STA (08:54)
[2022-10-07] MEDS ORDERED: ONDANSETRON 4 MG/2 ML VIAL IVP STA (08:54)
[2022-10-07 09:06] LABS: ALBUMIN 4.3 g/dL (3.2-5.5); ALBUMIN/GLOBULIN RATIO 1.5 (1.0-2.2); BILIRUBIN,TOTAL 0.8 mg/dL (0.2-1.0); CALCIUM 9.3 mg/dL (8.5-10.3); CREATININE 1.3 mg/dL (0.6-1.3); POTASSIUM 3.8 mmol/L (3.5-4.5); TOTAL PROTEIN 7.1 g/dL (6.4-8.9)
--- NOTE | 2022-10-07 09:31 | XRAY Report ---
PROCEDURE: Chest 1 View X-Ray INDICATIONS: SOA TECHNIQUE: One view of the chest was acquired. COMPARISON: None. FINDINGS: Surgical changes and devices: None. Lungs and pleura: No dense consolidations. Mild bronchial wall thickening in the infrahilar regions bilaterally. No pleural effusion or pneumothorax. Mediastinum: Mediastinal contours appear normal. Heart size is normal. Bones and chest wall: No suspicious bony lesions. Overlying soft tissues appear unremarkable. IMPRESSION: 1. Bronchial wall thickening suggesting reactive airways disease/bronchitis. Reviewed by: Katie Castro MD on 10/07/2022 9:30 AM PDT Approved by: Katie Castro MD on 10/07/2022 9:30 AM PDT Station ID: [id number]
[2022-10-07] MEDS ORDERED: PANTOPRAZOLE 40 MG VIAL IVP STA (09:34)
--- NOTE | 2022-10-07 10:14 | ED Physician Documentation ---
History of Present Illness - Stated complaint Stated Complaint: SOA - Chief complaint Chief Complaint: Resp - History obtained from History obtained from: Patient - Additonal information Additional information: Patient is a 61-year-old male with a history of eosinophilic esophagitis presenting for evaluation of difficulty with swallowing that he noticed starting around 3:00 this morning. He reports he last ate yesterday evening which was toast and reported feeling okay when he went to bed. Patient states he last had an EGD 10 years ago in [place]. He has been compliant with omeprazole up until the last several days. Patient reports recently having URI symptoms with cough and congestion. Patient states he is not able to swallow any of his saliva. reports that he had a low-grade fever of 100 yesterday. His cough has been nonproductive. No chest pain or feeling short of air. No abdominal symptoms. Review of Systems Constitutional: denies: Fever Nose: reports: Congestion Cardiac: denies: Chest pain / pressure Respiratory: reports: Cough. denies: Dyspnea GI: denies: Abdominal Pain, Vomiting Neurologic: denies: Headache PD PAST MEDICAL HISTORY - Past Medical History Cardiovascular: None Respiratory: None Neuro: None Endocrine/Autoimmune: None GI: Other (eosiniphilic esophagitis, takes PPI daily for it.) - Past Surgical History HEENT: Other - Present Medications Home Medications: Ambulatory Orders Medication Instructions Recorded Confirmed Multivitamin [Multivitamins] 1 cap PO DAILY 11/10/19 11/10/19 Omeprazole 20 mg PO DAILY 11/10/19 11/10/19 Triamcinolone Acetonide [Nasacort] 1 spray KATHLEEN DAILY PRN 11/10/19 11/10/19 Ondansetron Odt [Zofran Odt] 4 mg PO Q6H PRN #15 tablet 11/11/19 oxyCODONE/ACET 5/325 [Percocet 5 1 each PO Q4-6H PRN #20 tablet 11/11/19 mg/325 mg] - Allergies Allergies/Adverse Reactions: Allergies Allergy/AdvReac Type Severity Reaction Status Date / Time No Known Drug Allergies Allergy Verified 10/07/22 08:50 - Social History Does the pt smoke?: No Smoking Status: Never smoker PD ED PE NORMAL - General General: Alert and oriented X 3, No acute distress, Well developed/nourished - HEENT HEENT: Atraumatic, Moist mucous membranes, Pharynx benign, Other (Normal speech, no stridor) - Neck Neck: Supple, no meningeal sign - Cardiac Cardiac: RRR, No murmur - Respiratory Respiratory: No respiratory distress, Clear bilaterally - Abdomen Abdomen: Soft, Non tender - Derm Derm: Warm and dry - Neuro Neuro: Normal speech Results - Vitals Vitals: Vital Signs - 24 hr 10/07/22 10/07/22 10/07/22 08:44 08:50 09:20 Temperature 37.3 C Heart Rate 87 88 89 Respiratory 14 18 18 Rate Blood Pressure 160/117 H 150/82 H 158/107 H O2 Saturation 100 100 99 10/07/22 10/07/22 10/07/22 10:00 10:30 11:00 Temperature Heart Rate 89 88 84 Respiratory 18 17 16 Rate Blood Pressure 150/72 H 143/94 H 151/58 H O2 Saturation 99 99 97 Oxygen O2 Source Room air - Labs Labs: Laboratory Tests 10/07/22 10/07/22 10/07/22 08:35 08:35 09:59 WBC 6.8 RBC 5.70 Hgb 16.8 Hct 50.3 MCV 88.2 MCH 29.5 MCHC 33.4 RDW 12.9 Plt Count 157 MPV 9.1 Neut # (Auto) 4.3 Lymph # (Auto) 1.3 L Randall # (Auto) 1.0 Eos # (Auto) 0.1 Baso # (Auto) 0.0 Absolute Nucleated RBC 0.00 Nucleated RBC % 0.0 Sodium 138 Potassium 3.8 Chloride 105 Carbon Dioxide 25 Anion Gap 8.0 BUN 15 Creatinine 1.3 Estimated GFR (MDRD) 56 L Glucose 116 H Calcium 9.3 Total Bilirubin 0.8 AST 16 ALT 16 Alkaline Phosphatase 94 Total Protein 7.1 Albumin 4.3 Globulin 2.8 Albumin/Globulin Ratio 1.5 Nasal Adenovirus (PCR) NOT DETECTED Nasal B. parapertussis DNA (PCR) NOT DETECTED Nasal Coronavir 229E PCR NOT DETECTED Nasal Coronavir HKU1 PCR NOT DETECTED Nasal Coronavir NL63 PCR NOT DETECTED Nasal Coronavir OC43 PCR NOT DETECTED Nasal Enterovir/Rhinovir PCR NOT DETECTED Nasal Influenza B PCR NOT DETECTED Nasal Influenza A PCR NOT DETECTED Nasal Parainfluen 1 PCR NOT DETECTED Nasal Parainfluen 2 PCR NOT DETECTED Nasal Parainfluen 3 PCR NOT DETECTED Nasal Parainfluen 4 PCR NOT DETECTED Nasal RSV (PCR) NOT DETECTED Nasal B.pertussis DNA PCR NOT DETECTED Nasal C.pneumoniae (PCR) NOT DETECTED Kathleen Human Metapneumo PCR NOT DETECTED Nasal M.pneumoniae (PCR) NOT DETECTED Nasal SARS-CoV-2 (PCR) DETECTED A PD Medical Decision Making - ED course Complexity details: re-evaluated patient, d/w patient, d/w family ED course: Pt with trouble swallowing, history of EOE. No fever, muffled voice, or stridor to suggest epiglottitis or retropharyngeal abscess. History and exam suggest esophageal etiology. Attempted glucagon with no change. Protecting airway and even able to lay back reclined at times. Still unable to pass PO. Labs reviewed - non contributatory. Chest XR without pneumonia. Respiratory swab is positive for Covid - RN did not notify this provider. Unclear if pt aware of positive results so have asked current ED physician to call pt. D/W Gi at [facility] who accepts pt for transfer ER to ER for EGD. 0925 - No improvement after glucagon. Continues to have no stridor.Not able to swallow any secretions. His speech continues to sound normal. 0927 -Discussed with locum surgeon Dr Lewis - Recommends transfer to facility with GI as he is not able to perform esophageal dilatations if the patient requires this. 0935 - Discussed with Dr. Melissa, GI at [facility]. Agrees to consult on the patient. Request that we send the patient to [facility] ER where he can evaluate the patient and perform EGD. 0940 - Discussed with Dr. Andrade, EM at [facility]. Accepts the patient for transfer. Departure - Departure Disposition: 02 Transfer Acute Care Hosp Clinical Impression: Dysphagia, Eosinophilic esophagitis Condition: Fair Forms: PCP List Discharge Date/Time: 10/07/22 11:39
[2022-10-07 11:04] LABS: CORONAVIRUS 229E-RESP PCR NOT DETECTED; CORONAVIRUS HKU1-RESP PCR NOT DETECTED; CORONAVIRUS NL63-RESP PCR NOT DETECTED; CORONAVIRUS OC43-RESP PCR NOT DETECTED
[2022-10-07 11:07] LABS: B. PARAPERTUSSIS- RESP PCR PAN NOT DETECTED; B. PERTUSSIS- RESP PCR PANEL NOT DETECTED; C. PNEUMONIAE- RESP PCR PANEL NOT DETECTED; HUMAN METAPNEUMOVIRUS NOT DETECTED; INFLUENZA A- RESP PCR PANEL NOT DETECTED; INFLUENZA B - RESP PCR PANEL NOT DETECTED; M. PNEUMONIAE- RESP PCR PANEL NOT DETECTED; PARAINFLUENZA VIRUS 1 NOT DETECTED; PARAINFLUENZA VIRUS 2 NOT DETECTED; PARAINFLUENZA VIRUS 3 NOT DETECTED; PARAINFLUENZA VIRUS 4 NOT DETECTED; RHINOVIRUS/ENTEROVIRUS NOT DETECTED; RSV- RESP PCR PANEL NOT DETECTED; SARS-CoV-2 -RESP PCR PANEL DETECTED
[2022-10-07 11:12] VITALS: BP 151/58
== END 2022-10-07 11:39 | disposition short-term general hospital (02) ==
LOC: ED 08:26
DX: R13.10 Dysphagia, unspecified (principal); K20.0 Eosinophilic esophagitis; U07.1 COVID-19
CPT/HCPCS: 36415; 80053; 85025; 87633; 96374; 96375; 99285